=== PATIENT | male | born 1965 | race Caucasian/White ===

== ENCOUNTER 2024-03-14 12:22 | Emergency (ER) | payer OTHER ==
[~2024-03-14] VITALS: Ht 190.5 cm; Wt 113.4 kg
[2024-03-14 12:46] VITALS: BP_SYST 125; PULSE 98; RESP 18; TEMP 96.5; O2SAT 94
[2024-03-14] MEDS: KETOROLAC TROMETHAMINE 60 MG/2 ML VIAL IM ONE (15:33)
[2024-03-14] MEDS ORDERED: HYDR-3927 PO (15:35)
[2024-03-14] MEDS ORDERED: IBUP-1971 PO (15:35)
[2024-03-14 16:04] VITALS: BP_SYST 125; PULSE 98; RESP 18; TEMP 96.5; O2SAT 94
== END 2024-03-14 16:04 | disposition home or self-care (01) ==
LOC: SED 12:22
DX: S42.032A Displaced fracture of lateral end of left clavicle, initial encounter for closed fracture (principal); S22.42XA Multiple fractures of ribs, left side, initial encounter for closed fracture; Z79.899 Other long term (current) drug therapy; V19.88XA Pedal cyclist (driver) (passenger) injured in other specified transport accidents, initial encounter; Y93.55 Activity, bike riding; Y92.89 Other specified places as the place of occurrence of the external cause; Y99.8 Other external cause status
CPT/HCPCS: 99285; 71250; 73030; 96372; J1885